=== PATIENT | female | born 1955 | race Hispanic/Latino ===

== ENCOUNTER 2022-02-12 07:01 | Day surgery (SDC) | payer OTHER ==
[2022-02-08 12:46] VITALS: BMI 31.5
[2022-02-12] MEDS ORDERED: EPINEPHrine 0.3 MG in Ophthalmic Irrigation Solution 500 ML IRR SCH (07:15)
[2022-02-12] MEDS ORDERED: Cyclopentolate 1% Opth Drop 2 ML BOT ONE (07:16)
[2022-02-12] MEDS ORDERED: Phenylephrine 2.5% Ophth Soln 5 ML BOT ONE (07:16)
[2022-02-12] MEDS ORDERED: Midazolam HCl 2 mg/2 ml Vial ONE (08:33)
[2022-02-12] MEDS ORDERED: fentaNYL Citrate/PF 100 MCG/2 ML SYRINGE ONE (08:34)
[2022-02-12] MEDS ORDERED: Bupivacaine 0.75% 10 ML VIAL ONE (08:56)
[2022-02-12] MEDS ORDERED: CEFAZOLIN 1 GM VIAL ONE (08:56)
[2022-02-12] MEDS ORDERED: Triamcinolone 40 MG/ML VIAL ONE (08:56)
[2022-02-12] MEDS ORDERED: Lidocaine 4% PF 5 ML AMP ONE (08:56)
[2022-02-12] MEDS ORDERED: Maxitrol 0.1% Opth Oint 3.5 GM TUBE ONE (08:56)
[2022-02-12] MEDS ORDERED: Lidocaine 1% PF 5 ML VIAL ONE (08:56)
== END 2022-02-12 10:11 | disposition home or self-care (01) ==
LOC: SDC 07:01
PROVIDERS: ATTEND Ophthalmology Retina Specialist
PROC: 08B43ZZ Excision of Right Vitreous, Percutaneous Approach (ICD-10-PCS; principal; 2022-02-12)
PROC: 08QE3ZZ Repair Right Retina, Percutaneous Approach (ICD-10-PCS; 2022-02-12)
DX: H43.11 Vitreous hemorrhage, right eye (principal); E11.3591 Type 2 diabetes mellitus with proliferative diabetic retinopathy without macular edema, right eye
CPT/HCPCS: J0171; J0690; J2250; J3301; J3490

== ENCOUNTER 2022-03-03 21:11 | Inpatient (IN) | payer OTHER ==
[2022-03-03 22:08] LABS: #Lymphocytes 0.9 thou/uL (1.20-3.40); #Monocytes 0.7 thou/uL (0.11-0.59); #Neutrophils 9.7 thou/uL (1.40-6.50); %Basophils 0.3 % (0.0-1.0); %Eosinophils 0.4 % (0.0-10.0); %Lymphocytes 7.5 % (21.0-51.0); %Monocytes 6.4 % (0.0-10.0); %Neutrophils 85.4 % (42.0-75.0); Hemoglobin 8.8 g/dL (12.0-16.0); Mean Corpuscular Hemoglobin 27.5 pg (27.0-31.0); Mean Corpuscular Volume 88.7 fl (78.0-98.0); Mean Platelet Volume 9.4 fL (7.4-10.4); Platelet Count 204 thou/uL (130-400); Red Blood Cell (RBC) Count 3.21 mill/uL (4.20-5.40); White Blood Cell (WBC) Count 11.3 thou/uL (4.8-10.8)
[2022-03-03] MEDS ORDERED: cefTRIAXone\\ROCEPHIN 2 GM VIAL ONE (22:43)
[2022-03-03 23:15] LABS: ALT (SGPT) 15 U/L (8-55); AST (SGOT) 13 U/L (5-34); Albumin 3.5 g/dL (3.4-4.8); Alkaline Phosphatase 83 U/L (40-110); Anion Gap 13 mmol/L (10-20); BUN (Urea Nitrogen) 50 mg/dL (9.8-20.1); Bilirubin, Total 0.5 mg/dL (0.2-1.2); Calc. Creatinine Clearance 0 mL/min (70-130); Calcium 8.9 mg/dL (7.8-10.44); Carbon Dioxide 20 mmol/L (23-31); Chloride 105 mmol/L (98-107); Estimated GFR 25; Globulin 3.6 g/dL (2.4-3.5); Glucose 224 mg/dL (80-115); Potassium 4.4 mmol/L (3.5-5.1); Protein, Total 7.1 g/dL (5.8-8.1); Sodium 134 mmol/L (136-145)
[2022-03-04] MEDS ORDERED: Azithromycin 500 MG VIAL ONE (00:03)
[2022-03-04 00:04] LABS: SARS-CoV-2 NAA Rapid Test DETECTED (NotDetected)
[2022-03-04] MEDS ORDERED: Acetaminophen 500 MG TAB ONE (01:13)
[2022-03-04] MEDS ORDERED: Furosemide 40 MG/4 ML VIAL ONE (01:13)
[2022-03-04] MEDS ORDERED: Ondansetron PF 4 MG/2 ML Vial IVP PRN (01:21)
[2022-03-04] MEDS ORDERED: Dextrose 5% in Water 1,000 ML IV PRN (01:23)
[2022-03-04] MEDS ORDERED: Dextrose 50% Abboject 50 ML SYRINGE SLOW IVP PRN (01:23)
[2022-03-04] MEDS ORDERED: Furosemide 20 MG/2 ML VIAL SLOW IVP SCH (01:30)
[2022-03-04 01:54] LABS: Troponin I 0.011 ng/mL (< 0.028)
[2022-03-04] MEDS ORDERED: Albuterol Sulfate 2.5 mg/3 ml Neb NEB PRN (02:34)
[2022-03-04] MEDS ORDERED: Albuterol 200 PUFF (6.7GM INHALER) INH PRN (02:40)
[2022-03-04 03:25] VITALS: BMI 31.0
[2022-03-04] MEDS: Acetaminophen 325 MG TAB PO PRN ×4 (04:24→23:13)
[2022-03-04] MEDS: Dexamethasone 10 MG/ML VIAL SLOW IVP SCH ×2 (04:25→13:39)
[2022-03-04 05:19] LABS: #Lymphocytes 1.7 thou/uL (1.20-3.40); #Monocytes 0.7 thou/uL (0.11-0.59); #Neutrophils 6.9 thou/uL (1.40-6.50); %Basophils 0.3 % (0.0-1.0); %Eosinophils 0.5 % (0.0-10.0); %Lymphocytes 18.2 % (21.0-51.0); %Monocytes 7.4 % (0.0-10.0); %Neutrophils 73.7 % (42.0-75.0); Hemoglobin 8.8 g/dL (12.0-16.0); Mean Corpuscular Hemoglobin 28.9 pg (27.0-31.0); Mean Corpuscular Volume 90.3 fl (78.0-98.0); Mean Platelet Volume 9.3 fL (7.4-10.4); Platelet Count 201 thou/uL (130-400); Red Blood Cell (RBC) Count 3.04 mill/uL (4.20-5.40); White Blood Cell (WBC) Count 9.3 thou/uL (4.8-10.8)
[2022-03-04 05:34] LABS: Anion Gap 14 mmol/L (10-20); BUN (Urea Nitrogen) 47 mg/dL (9.8-20.1); Calc. Creatinine Clearance 32 mL/min (70-130); Calcium 8.6 mg/dL (7.8-10.44); Carbon Dioxide 20 mmol/L (23-31); Chloride 106 mmol/L (98-107); Estimated GFR 27; Glucose 148 mg/dL (80-115); Potassium 4.1 mmol/L (3.5-5.1); Sodium 136 mmol/L (136-145)
[2022-03-04 05:42] LABS: Troponin I Less than 0.010 ng/mL (< 0.028)
[2022-03-04] MEDS: Furosemide 20 MG/2 ML VIAL SLOW IVP SCH ×2 (07:08→13:39)
[2022-03-04] MEDS: Zinc Sulfate 220 MG CAP PO SCH (10:20)
[2022-03-04] MEDS: Ascorbic Acid 500 mg Chewable Tablet PO SCH (10:20)
[2022-03-04] MEDS: Heparin 5,000 UNITS/ML VIAL SC SCH ×2 (10:20→22:20)
[2022-03-04 12:47] LABS: Legionella Urinary Ag Negative (Negative); Strep pneumo Urine Ag NEGATIVE (NEGATIVE)
[2022-03-04] MEDS: HumaLOG 300 UNITS/3 ML VIAL SC PRN ×3 (13:42→22:41)
[2022-03-04] MEDS ORDERED: Morphine 2 MG/ML VIAL SLOW IVP PRN (13:45)
[2022-03-04] MEDS: Morphine 4 MG/ML VIAL SLOW IVP PRN ×2 (14:18→17:55)
[2022-03-04] MEDS ORDERED: Epoetin (ESRD) 20,000 UNITS/ML SC SCH (17:30)
[2022-03-04 17:43] LABS: Iron 10 ug/dL (50-170); Iron Binding Capacity, Total 241 mcg/dL (265-497)
[2022-03-04] MEDS ORDERED: Furosemide 40 MG TAB PO PRN (18:43)
[2022-03-04] MEDS ORDERED: cloNIDine 0.1 MG TAB PO PRN (18:43)
[2022-03-04] MEDS ORDERED: Insulin Glargine 30 UNITS/0.3 ML VIAL SC SCH (21:00)
[2022-03-04] MEDS: Amlodipine 5 MG TAB PO SCH (22:16)
[2022-03-04] MEDS: cefTRIAXone\\ROCEPHIN 1 GM in Sodium Chloride 0.9% 100 ML IVPB SCH (22:21)
[2022-03-05] MEDS: Azithromycin 500 MG in Sodium Chloride 0.9% 250 ML 250 ML IVPB SCH (03:12)
[2022-03-05] MEDS: Dexamethasone 10 MG/ML VIAL SLOW IVP SCH ×2 (03:12→15:33)
[2022-03-05] MEDS: Morphine 4 MG/ML VIAL SLOW IVP PRN ×2 (03:43→09:54)
[2022-03-05 04:25] LABS: #Lymphocytes 0.8 thou/uL (1.20-3.40); #Monocytes 0.2 thou/uL (0.11-0.59); #Neutrophils 4.8 thou/uL (1.40-6.50); %Basophils 0.1 % (0.0-1.0); %Eosinophils 0.1 % (0.0-10.0); %Lymphocytes 13.6 % (21.0-51.0); %Monocytes 2.8 % (0.0-10.0); %Neutrophils 83.5 % (42.0-75.0); Hemoglobin 9.3 g/dL (12.0-16.0); Mean Corpuscular HGB CONC 32.6 g/dL (32.0-36.0); Mean Corpuscular Hemoglobin 28.7 pg (27.0-31.0); Mean Platelet Volume 10.2 fL (7.4-10.4); Platelet Count 217 thou/uL (130-400); RBC Distribution Width 13.7 % (11.5-14.5); Red Blood Cell (RBC) Count 3.24 mill/uL (4.20-5.40); White Blood Cell (WBC) Count 5.8 thou/uL (4.8-10.8)
[2022-03-05 04:38] LABS: Anion Gap 15 mmol/L (10-20); BUN (Urea Nitrogen) 55 mg/dL (9.8-20.1); Calc. Creatinine Clearance 33 mL/min (70-130); Calcium 9.1 mg/dL (7.8-10.44); Carbon Dioxide 21 mmol/L (23-31); Chloride 102 mmol/L (98-107); Estimated GFR 28; Glucose 245 mg/dL (80-115); Potassium 4.1 mmol/L (3.5-5.1); Sodium 134 mmol/L (136-145)
[2022-03-05] MEDS: Furosemide 20 MG/2 ML VIAL SLOW IVP SCH ×2 (06:37→15:32)
[2022-03-05] MEDS ORDERED: Alogliptin 25 MG TAB PO SCH (09:00)
[2022-03-05] MEDS: FLUoxetine HCl 20 MG CAP PO SCH (09:53)
[2022-03-05] MEDS: Amlodipine 5 MG TAB PO SCH ×2 (09:55→21:04)
[2022-03-05] MEDS: Zinc Sulfate 220 MG CAP PO SCH (09:55)
[2022-03-05] MEDS: Ascorbic Acid 500 mg Chewable Tablet PO SCH (09:55)
[2022-03-05] MEDS: Atorvastatin Calcium 40 MG TAB PO SCH (09:55)
[2022-03-05] MEDS: Heparin 5,000 UNITS/ML VIAL SC SCH ×2 (09:56→21:04)
[2022-03-05] MEDS: Pregabalin 75 MG CAP PO SCH (09:56)
[2022-03-05] MEDS: Alogliptin 6.25 MG TAB PO SCH (10:01)
[2022-03-05] MEDS: HumaLOG 300 UNITS/3 ML VIAL SC PRN ×3 (12:50→21:03)
[2022-03-05] MEDS ORDERED: Insulin Glargine 30 UNITS/0.3 ML VIAL SC SCH ×2 (15:15→21:00)
[2022-03-05] MEDS: Acetaminophen/Codeine 30-300mg Tablet PO PRN (17:33)
[2022-03-05 21:36] VITALS: BP 146/95
[2022-03-05] MEDS: cefTRIAXone\\ROCEPHIN 1 GM in Sodium Chloride 0.9% 100 ML IVPB SCH (23:46)
[2022-03-06] MEDS: Acetaminophen/Codeine 30-300mg Tablet PO PRN ×3 (00:04→15:26)
[2022-03-06] MEDS: Azithromycin 500 MG in Sodium Chloride 0.9% 250 ML 250 ML IVPB SCH ×2 (00:50→23:33)
[2022-03-06] MEDS: Dexamethasone 10 MG/ML VIAL SLOW IVP SCH ×2 (02:07→15:25)
[2022-03-06 04:00] LABS: #Lymphocytes 0.8 thou/uL (1.20-3.40); #Monocytes 0.2 thou/uL (0.11-0.59); #Neutrophils 4.9 thou/uL (1.40-6.50); %Eosinophils 0.2 % (0.0-10.0); %Neutrophils 83.9 % (42.0-75.0); Hemoglobin 9.4 g/dL (12.0-16.0); Mean Corpuscular HGB CONC 32.5 g/dL (32.0-36.0); Mean Corpuscular Hemoglobin 28.9 pg (27.0-31.0); Mean Platelet Volume 9.8 fL (7.4-10.4); Platelet Count 248 thou/uL (130-400); RBC Distribution Width 13.7 % (11.5-14.5); Red Blood Cell (RBC) Count 3.26 mill/uL (4.20-5.40); White Blood Cell (WBC) Count 5.8 thou/uL (4.8-10.8)
[2022-03-06 04:21] LABS: Anion Gap 13 mmol/L (10-20); BUN (Urea Nitrogen) 62 mg/dL (9.8-20.1); Calc. Creatinine Clearance 34 mL/min (70-130); Calcium 8.5 mg/dL (7.8-10.44); Carbon Dioxide 24 mmol/L (23-31); Chloride 101 mmol/L (98-107); Estimated GFR 28; Glucose 303 mg/dL (80-115); Potassium 4.2 mmol/L (3.5-5.1); Sodium 134 mmol/L (136-145)
[2022-03-06] MEDS: Furosemide 20 MG/2 ML VIAL SLOW IVP SCH ×2 (05:38→15:18)
[2022-03-06] MEDS: HumaLOG 300 UNITS/3 ML VIAL SC PRN ×4 (05:39→21:17)
[2022-03-06] MEDS: Alogliptin 6.25 MG TAB PO SCH (08:53)
[2022-03-06] MEDS: Atorvastatin Calcium 40 MG TAB PO SCH (08:53)
[2022-03-06] MEDS: Ascorbic Acid 500 mg Chewable Tablet PO SCH (08:53)
[2022-03-06] MEDS: Amlodipine 5 MG TAB PO SCH ×2 (08:54→20:48)
[2022-03-06] MEDS: Heparin 5,000 UNITS/ML VIAL SC SCH ×2 (08:54→20:49)
[2022-03-06] MEDS: Zinc Sulfate 220 MG CAP PO SCH (08:54)
[2022-03-06] MEDS: Calcitriol 0.25 MCG CAP PO SCH (08:54)
[2022-03-06] MEDS: Pregabalin 75 MG CAP PO SCH (08:54)
[2022-03-06] MEDS: FLUoxetine HCl 20 MG CAP PO SCH (08:54)
[2022-03-06 10:19] LABS: Creatinine, Urine 27.09 mg/dL (47-110)
[2022-03-06] MEDS ORDERED: Insulin Glargine 30 UNITS/0.3 ML VIAL SC SCH (14:30)
[2022-03-06] MEDS: Insulin Glargine 30 UNITS/0.3 ML VIAL SC SCH (20:49)
[2022-03-06] MEDS: Morphine 4 MG/ML VIAL SLOW IVP PRN (21:18)
[2022-03-06] MEDS: cefTRIAXone\\ROCEPHIN 1 GM in Sodium Chloride 0.9% 100 ML IVPB SCH (23:04)
[2022-03-07] MEDS: Dexamethasone 10 MG/ML VIAL SLOW IVP SCH ×2 (01:49→15:20)
[2022-03-07] MEDS: HumaLOG 300 UNITS/3 ML VIAL SC PRN ×4 (06:06→21:29)
[2022-03-07] MEDS ORDERED: FLU VACC QS2022-23(65YR UP)/PF 240 MCG/0.7 ML SYRINGE IM ONE (09:00)
[2022-03-07] MEDS: Pregabalin 75 MG CAP PO SCH (09:07)
[2022-03-07] MEDS: FLUoxetine HCl 20 MG CAP PO SCH (09:07)
[2022-03-07] MEDS: Atorvastatin Calcium 40 MG TAB PO SCH (09:07)
[2022-03-07] MEDS: Calcitriol 0.25 MCG CAP PO SCH (09:07)
[2022-03-07] MEDS: Amlodipine 5 MG TAB PO SCH ×2 (09:07→20:48)
[2022-03-07] MEDS: Ascorbic Acid 500 mg Chewable Tablet PO SCH (09:07)
[2022-03-07] MEDS: Zinc Sulfate 220 MG CAP PO SCH (09:07)
[2022-03-07] MEDS: Heparin 5,000 UNITS/ML VIAL SC SCH ×2 (09:08→20:47)
[2022-03-07] MEDS: Alogliptin 6.25 MG TAB PO SCH (09:08)
[2022-03-07] MEDS: Morphine 4 MG/ML VIAL SLOW IVP PRN ×2 (09:08→17:04)
[2022-03-07 10:58] LABS: #Lymphocytes 0.8 thou/uL (1.20-3.40); #Monocytes 0.5 thou/uL (0.11-0.59); #Neutrophils 4.1 thou/uL (1.40-6.50); %Basophils 0.2 % (0.0-1.0); %Eosinophils 0.1 % (0.0-10.0); %Lymphocytes 14.9 % (21.0-51.0); %Monocytes 9.7 % (0.0-10.0); Hemoglobin 10.5 g/dL (12.0-16.0); Mean Corpuscular HGB CONC 31.6 g/dL (32.0-36.0); Mean Corpuscular Hemoglobin 27.8 pg (27.0-31.0); Mean Corpuscular Volume 88.1 fl (78.0-98.0); Mean Platelet Volume 9.3 fL (7.4-10.4); Platelet Count 299 thou/uL (130-400); RBC Distribution Width 13.8 % (11.5-14.5); Red Blood Cell (RBC) Count 3.78 mill/uL (4.20-5.40); White Blood Cell (WBC) Count 5.5 thou/uL (4.8-10.8)
[2022-03-07 11:16] LABS: Anion Gap 14 mmol/L (10-20); BUN (Urea Nitrogen) 56 mg/dL (9.8-20.1); Calc. Creatinine Clearance 0 mL/min (70-130); Carbon Dioxide 25 mmol/L (23-31); Chloride 99 mmol/L (98-107); Estimated GFR 30; Glucose 424 mg/dL (80-115); Potassium 4.2 mmol/L (3.5-5.1); Sodium 134 mmol/L (136-145)
[2022-03-07 15:49] LABS: Bilirubin Negative (Negative); Blood, Urine 1+ (Negative); Clarity Turbid (Clear); Glucose, Urine (Dipstick) >=1000 mg/dL (Negative); Ketone, Urine Negative (Negative); Leukocyte 75 Leu/uL (Negative); Nitrite Negative (Negative); Protein, Urine (Dipstick) 70 mg/dL (Neg-Trace); Specific Gravity, Urine 1.015 (1.002-1.036); Squamous Epithelial 0-3 HPF (0-3); Urobilinogen Normal mg/dL (Less than 2); WBC/HPF 0-3 HPF (0-3); pH, Urine 5.5 (5.0-9.0)
[2022-03-07 16:00] LABS: Bacteria/HPF 1+ HPF (None Seen); RBC/HPF 0-3 HPF (0-3); Yeast-Budding 1+ HPF (None Seen)
[2022-03-07 16:01] LABS: Urine Culture Reflex Yes Yes
[2022-03-07 16:39] LABS: A/G Ratio 0.7 (0.7-1.7); Albumin 2.6 g/dL (2.9-4.4); Alpha 1 0.5 g/dL (0.0-0.4); Alpha 2 1.1 g/dL (0.4-1.0); Beta 1.1 g/dL (0.7-1.3); Gamma 1.1 g/dL (0.4-1.8); Globulin, Total 3.7 g/dL (2.2-3.9); M-Spike Not Observed g/dL (Not Observed); Protein Electrophoresis Intrp Note: (.)
[2022-03-07] MEDS: Insulin Glargine 30 UNITS/0.3 ML VIAL SC SCH (20:48)
[2022-03-08] MEDS: cefTRIAXone\\ROCEPHIN 1 GM in Sodium Chloride 0.9% 100 ML IVPB SCH (00:19)
[2022-03-08] MEDS: Azithromycin 500 MG in Sodium Chloride 0.9% 250 ML 250 ML IVPB SCH (00:53)
[2022-03-08] MEDS: Dexamethasone 10 MG/ML VIAL SLOW IVP SCH ×2 (02:56→14:17)
[2022-03-08 04:15] LABS: #Lymphocytes 1.6 thou/uL (1.20-3.40); #Monocytes 0.5 thou/uL (0.11-0.59); #Neutrophils 4.8 thou/uL (1.40-6.50); %Eosinophils 0.2 % (0.0-10.0); %Lymphocytes 22.7 % (21.0-51.0); %Monocytes 7.8 % (0.0-10.0); %Neutrophils 69.2 % (42.0-75.0); Hemoglobin 9.7 g/dL (12.0-16.0); Mean Corpuscular HGB CONC 32.4 g/dL (32.0-36.0); Mean Corpuscular Hemoglobin 28.2 pg (27.0-31.0); Mean Corpuscular Volume 86.9 fl (78.0-98.0); Mean Platelet Volume 9.6 fL (7.4-10.4); Platelet Count 270 thou/uL (130-400); RBC Distribution Width 13.7 % (11.5-14.5); Red Blood Cell (RBC) Count 3.43 mill/uL (4.20-5.40); White Blood Cell (WBC) Count 6.9 thou/uL (4.8-10.8)
[2022-03-08 04:33] LABS: Anion Gap 15 mmol/L (10-20); BUN (Urea Nitrogen) 56 mg/dL (9.8-20.1); CRP (Inflammatory) 4.24 mg/dL (= or < 0.5); Calc. Creatinine Clearance 0 mL/min (70-130); Calcium 8.9 mg/dL (7.8-10.44); Carbon Dioxide 24 mmol/L (23-31); Chloride 103 mmol/L (98-107); Estimated GFR 34; Glucose 176 mg/dL (80-115); Potassium 4.6 mmol/L (3.5-5.1); Sodium 137 mmol/L (136-145)
[2022-03-08] MEDS: HumaLOG 300 UNITS/3 ML VIAL SC PRN ×3 (07:01→17:21)
[2022-03-08] MEDS: Amlodipine 5 MG TAB PO SCH (09:10)
[2022-03-08] MEDS: Alogliptin 6.25 MG TAB PO SCH (09:10)
[2022-03-08] MEDS: Ascorbic Acid 500 mg Chewable Tablet PO SCH (09:10)
[2022-03-08] MEDS: FLUoxetine HCl 20 MG CAP PO SCH (09:11)
[2022-03-08] MEDS: Pregabalin 75 MG CAP PO SCH (09:11)
[2022-03-08] MEDS: Zinc Sulfate 220 MG CAP PO SCH (09:11)
[2022-03-08] MEDS: Atorvastatin Calcium 40 MG TAB PO SCH (09:11)
[2022-03-08] MEDS: Calcitriol 0.25 MCG CAP PO SCH (09:11)
[2022-03-08] MEDS: Heparin 5,000 UNITS/ML VIAL SC SCH (09:14)
[2022-03-08 16:04] VITALS: TEMP 98
== END 2022-03-08 18:37 | disposition home or self-care (01) | DRG 177 ==
LOC: ERS 21:11 → ERHOLD 03-04 01:04 → IMCU/EMU 03-04 02:16
PROVIDERS: ADMIT Hospitalist; ATTEND Hospitalist
PROC: 8E0ZXY6 Isolation (ICD-10-PCS; principal; 2022-03-04)
PROC: 3E0333Z Introduction of Anti-inflammatory into Peripheral Vein, Percutaneous Approach (ICD-10-PCS; 2022-03-04)
DX: U07.1 COVID-19 (principal); J15.9 Unspecified bacterial pneumonia; J96.01 Acute respiratory failure with hypoxia; N18.4 Chronic kidney disease, stage 4 (severe); I69.954 Hemiplegia and hemiparesis following unspecified cerebrovascular disease affecting left non-dominant side; I13.0 Hypertensive heart and chronic kidney disease with heart failure and stage 1 through stage 4 chronic kidney disease, or unspecified chronic kidney disease; N17.9 Acute kidney failure, unspecified; E87.1 Hypo-osmolality and hyponatremia; I50.32 Chronic diastolic (congestive) heart failure; D63.1 Anemia in chronic kidney disease; E87.5 Hyperkalemia; E11.22 Type 2 diabetes mellitus with diabetic chronic kidney disease; M79.7 Fibromyalgia; Z79.899 Other long term (current) drug therapy; Z90.710 Acquired absence of both cervix and uterus; Z90.49 Acquired absence of other specified parts of digestive tract
CPT/HCPCS: 36415; 36416; 71045; 76770; 80048; 80053; 81001; 82306; 82570; 82728; 83540; 83550; 83605; 83880; 83970; 84100; 84145; 84155; 84156; 84165; 84484; 85025; 85379; 86140; 87040; 87086; 87449; 87899; 93005; 93306; 96365; 96367; 96375; J0456; J0696; J1100; J1644; J1815; J1940; J2270; J3490; J7050; Q4081

== ENCOUNTER 2023-03-10 23:07 | Inpatient (IN) | payer MEDICARE, OTHER ==
[2023-03-10] MEDS ORDERED: Acetaminophen 500 MG TAB ONE (23:32)
[2023-03-10] MEDS ORDERED: Ipratropium/Albuterol 3 ML NEB ONE (23:32)
[2023-03-10 23:48] LABS: Actual Bicarbonate (HCO3v) 21.4 mEq/L (22-28); Base Excess -3.5 mEq/L (-2.0 to +3.0); Calcium, Ionized (venous) 1.09 mmol/L (1.16-1.32); Chloride (VBG) 107 mmol/L (98-106); Hematocrit-VBG 34 % (36.0-47.0); Hemoglobin (Hb) 11.7 g/dL (11.7-16.1); Potassium (VBG) 5.18 mmol/L (3.70-5.30); Sodium 137 mmol/L (133-146); pH (venous) 7.366 (7.32-7.43)
[2023-03-11 00:07] LABS: #Basophils 0.1 thou/uL (0.0-0.2); #Eosinphils 0.1 thou/uL (0.0-0.7); #Monocytes 0.8 thou/uL (0.11-0.59); #Neutrophils 8.5 thou/uL (1.40-6.50); %Basophils 0.5 % (0.0-1.0); %Eosinophils 0.5 % (0.0-10.0); %Lymphocytes 12.7 % (21.0-51.0); %Monocytes 7.3 % (0.0-10.0); %Neutrophils 78.4 % (42.0-75.0); Hematocrit 33.6 % (36.0-47.0); Hemoglobin 10.6 g/dL (12.0-16.0); Mean Corpuscular HGB CONC 31.5 g/dL (32.0-36.0); Mean Corpuscular Hemoglobin 27.7 pg (27.0-31.0); Mean Platelet Volume 11.8 fL (7.4-10.4); Platelet Count 220 10x3/uL (130-400); RBC Distribution Width 13.4 % (11.5-14.5); Red Blood Cell (RBC) Count 3.82 mill/uL (4.20-5.40); White Blood Cell (WBC) Count 10.8 10x3/uL (4.8-10.8)
[2023-03-11 00:18] LABS: PTT 30.3 sec (22.9-36.1); Prothrombin Time 13.6 sec (12.0-14.7)
[2023-03-11 00:40] LABS: Troponin I Less than 0.010 ng/mL (< 0.028)
[2023-03-11 00:42] LABS: ALT (SGPT) 10 U/L (8-55); AST (SGOT) 14 U/L (5-34); Alkaline Phosphatase 73 U/L (40-110); BUN (Urea Nitrogen) 48 mg/dL (9.8-20.1); Bilirubin, Total 0.5 mg/dL (0.2-1.2); Calc. Creatinine Clearance 0 mL/min (70-130); Calcium 8.8 mg/dL (7.8-10.44); Carbon Dioxide 20 mmol/L (23-31); Estimated GFR 20; Globulin 2.6 g/dL (2.4-3.5); Glucose 141 mg/dL (80-115); Lipase 13 U/L (8-78); Magnesium 2.1 mg/dL (1.6-2.6); Protein, Total 6.6 g/dL (5.8-8.1)
[2023-03-11 00:50] LABS: Anion Gap 16 mmol/L (10-20); Chloride 108 mmol/L (98-107); Potassium 5.2 mmol/L (3.5-5.1); Sodium 138 mmol/L (136-145)
[2023-03-11] MEDS ORDERED: Furosemide 40 MG/4 ML VIAL ONE (02:15)
[2023-03-11] MEDS ORDERED: traMADol HCl 50 MG TAB ONE (02:16)
[2023-03-11 02:23] LABS: SARS-CoV-2 NAA Rapid Test Not Detected (NotDetected)
[2023-03-11] MEDS ORDERED: Dextrose 50% Abboject 50 ML SYRINGE SLOW IVP PRN (02:26)
[2023-03-11] MEDS ORDERED: Dextrose 5% in Water 1,000 ML IV PRN (02:26)
[2023-03-11] MEDS ORDERED: Glucagon 1 MG/ML KIT IM PRN (02:26)
[2023-03-11 03:23] LABS: Bilirubin Negative (Negative); Blood, Urine Small (Negative); Glucose, Urine (Dipstick) Negative (Negative); Ketone, Urine Trace mg/dL (Negative); Leukocyte Small (Negative); Nitrite Negative (Negative); Protein, Urine (Dipstick) 30 mg/dL (Neg-Trace); Specific Gravity, Urine 1.015 (1.005-1.030); Urobilinogen 0.2 mg/dL (Less than 2); pH, Urine 5.5 (5.0-9.0)
[2023-03-11 03:26] LABS: Clarity Hazy (Clear)
[2023-03-11 03:37] LABS: Bacteria/HPF 2+ HPF (None Seen); CAUTI Indications for Culture Alt mental st,lethar; RBC/HPF 0-3 HPF (0-3); WBC/HPF 21-50 HPF (0-3)
[2023-03-11 03:38] LABS: Urine Culture Reflex Yes Yes
[2023-03-11] MEDS ORDERED: Morphine 4 MG/ML VIAL SLOW IVP SCH (03:45)
[2023-03-11] MEDS ORDERED: Morphine 2 MG/ML VIAL ONE (03:58)
[2023-03-11 04:09] LABS: Troponin I 0.025 ng/mL (< 0.028)
[2023-03-11 05:40] LABS: #Monocytes 0.6 thou/uL (0.11-0.59); #Neutrophils 6.3 thou/uL (1.40-6.50); %Basophils 0.5 % (0.0-1.0); %Eosinophils 0.1 % (0.0-10.0); %Lymphocytes 18.6 % (21.0-51.0); %Monocytes 7.2 % (0.0-10.0); %Neutrophils 73.1 % (42.0-75.0); Hemoglobin 9.9 g/dL (12.0-16.0); Mean Corpuscular HGB CONC 30.9 g/dL (32.0-36.0); Mean Corpuscular Hemoglobin 27.6 pg (27.0-31.0); Mean Corpuscular Volume 89.1 fl (78.0-98.0); Mean Platelet Volume 11.4 fL (7.4-10.4); Platelet Count 193 10x3/uL (130-400); RBC Distribution Width 13.2 % (11.5-14.5); Red Blood Cell (RBC) Count 3.59 mill/uL (4.20-5.40); White Blood Cell (WBC) Count 8.6 10x3/uL (4.8-10.8)
[2023-03-11 06:13] LABS: Troponin I 0.016 ng/mL (< 0.028)
[2023-03-11 06:14] LABS: Anion Gap 15 mmol/L (10-20); BUN (Urea Nitrogen) 49 mg/dL (9.8-20.1); Calc. Creatinine Clearance 28 mL/min (70-130); Calcium 8.4 mg/dL (7.8-10.44); Carbon Dioxide 19 mmol/L (23-31); Chloride 109 mmol/L (98-107); Estimated GFR 21; Glucose 147 mg/dL (80-115); Sodium 138 mmol/L (136-145)
[2023-03-11] MEDS: Heparin 5,000 UNITS/ML VIAL SC SCH ×2 (09:28→21:32)
[2023-03-11] MEDS ORDERED: cefTRIAXone\\ROCEPHIN 2 GM in Sodium Chloride 0.9% 100 ML IVPB SCH (14:00)
[2023-03-11] MEDS: Furosemide 40 MG/4 ML VIAL SLOW IVP SCH (14:55)
[2023-03-11] MEDS: Acetaminophen 325 MG TAB PO PRN (16:01)
[2023-03-11] MEDS: HumaLOG 300 UNITS/3 ML VIAL SC PRN (17:38)
[2023-03-12] MEDS: Acetaminophen 325 MG TAB PO PRN ×3 (00:58→20:21)
[2023-03-12 04:23] LABS: #Eosinphils 0.1 thou/uL (0.0-0.7); #Monocytes 0.7 thou/uL (0.11-0.59); %Basophils 0.3 % (0.0-1.0); %Eosinophils 0.8 % (0.0-10.0); %Lymphocytes 20.9 % (21.0-51.0); %Monocytes 7.7 % (0.0-10.0); %Neutrophils 69.8 % (42.0-75.0); Hematocrit 28.7 % (36.0-47.0); Hemoglobin 9.3 g/dL (12.0-16.0); Mean Corpuscular HGB CONC 32.4 g/dL (32.0-36.0); Mean Corpuscular Hemoglobin 27.9 pg (27.0-31.0); Mean Platelet Volume 12.1 fL (7.4-10.4); Platelet Count 192 10x3/uL (130-400); RBC Distribution Width 13.2 % (11.5-14.5); Red Blood Cell (RBC) Count 3.33 mill/uL (4.20-5.40); White Blood Cell (WBC) Count 8.6 10x3/uL (4.8-10.8)
[2023-03-12 05:22] LABS: Mean Corpuscular Volume 86.2 fl (78.0-98.0)
[2023-03-12] MEDS: HumaLOG 300 UNITS/3 ML VIAL SC PRN ×3 (05:24→17:44)
[2023-03-12] MEDS: Furosemide 40 MG/4 ML VIAL SLOW IVP SCH ×2 (05:24→14:49)
[2023-03-12 08:55] LABS: Anion Gap 13 mmol/L (10-20); BUN (Urea Nitrogen) 52 mg/dL (9.8-20.1); Calc. Creatinine Clearance 28 mL/min (70-130); Calcium 8.2 mg/dL (7.8-10.44); Carbon Dioxide 22 mmol/L (23-31); Chloride 102 mmol/L (98-107); Estimated GFR 20; Glucose 184 mg/dL (80-115); Potassium 4.3 mmol/L (3.5-5.1); Sodium 133 mmol/L (136-145)
[2023-03-12] MEDS ORDERED: cefTRIAXone\\ROCEPHIN 1 GM in Sodium Chloride 0.9% 100 ML IVPB SCH (09:00)
[2023-03-12] MEDS ORDERED: Insulin Glargine 30 UNITS/0.3 ML VIAL SC SCH (09:15)
[2023-03-12] MEDS: Heparin 5,000 UNITS/ML VIAL SC SCH ×2 (09:34→20:22)
[2023-03-12] MEDS ORDERED: Alogliptin 6.25 MG TAB PO SCH (09:45)
[2023-03-12] MEDS ORDERED: Atorvastatin Calcium 40 MG TAB PO SCH (09:45)
[2023-03-12] MEDS ORDERED: Carvedilol 25 MG TAB PO SCH (09:45)
[2023-03-12] MEDS ORDERED: FLUoxetine HCl 20 MG CAP PO SCH (09:45)
[2023-03-12] MEDS: cefTRIAXone\\ROCEPHIN 1 GM in Sodium Chloride 0.9% 100 ML IVPB SCH (14:49)
[2023-03-12] MEDS: Pregabalin 75 MG CAP PO SCH (20:21)
[2023-03-12] MEDS: Carvedilol 25 MG TAB PO SCH (20:22)
[2023-03-13 04:32] LABS: #Eosinphils 0.3 thou/uL (0.0-0.7); #Monocytes 0.7 thou/uL (0.11-0.59); #Neutrophils 4.3 thou/uL (1.40-6.50); %Basophils 0.4 % (0.0-1.0); %Eosinophils 3.4 % (0.0-10.0); %Lymphocytes 30.5 % (21.0-51.0); %Monocytes 9.3 % (0.0-10.0); Hematocrit 29.7 % (36.0-47.0); Hemoglobin 9.4 g/dL (12.0-16.0); Mean Corpuscular HGB CONC 31.6 g/dL (32.0-36.0); Mean Corpuscular Hemoglobin 27.1 pg (27.0-31.0); Mean Corpuscular Volume 85.6 fl (78.0-98.0); Mean Platelet Volume 12.6 fL (7.4-10.4); Platelet Count 200 10x3/uL (130-400); RBC Distribution Width 13.2 % (11.5-14.5); Red Blood Cell (RBC) Count 3.47 mill/uL (4.20-5.40); White Blood Cell (WBC) Count 7.7 10x3/uL (4.8-10.8)
[2023-03-13 04:49] LABS: Anion Gap 14 mmol/L (10-20); BUN (Urea Nitrogen) 52 mg/dL (9.8-20.1); Calc. Creatinine Clearance 28 mL/min (70-130); Calcium 8.4 mg/dL (7.8-10.44); Carbon Dioxide 28 mmol/L (23-31); Chloride 101 mmol/L (98-107); Estimated GFR 20; Glucose 148 mg/dL (80-115); Magnesium 2.1 mg/dL (1.6-2.6); Potassium 3.7 mmol/L (3.5-5.1); Sodium 139 mmol/L (136-145)
[2023-03-13] MEDS: Furosemide 40 MG/4 ML VIAL SLOW IVP SCH ×2 (06:04→15:14)
[2023-03-13] MEDS: Heparin 5,000 UNITS/ML VIAL SC SCH ×2 (08:26→21:06)
[2023-03-13] MEDS: Alogliptin 6.25 MG TAB PO SCH (08:26)
[2023-03-13] MEDS: Atorvastatin Calcium 40 MG TAB PO SCH (08:27)
[2023-03-13] MEDS: Carvedilol 25 MG TAB PO SCH ×2 (08:27→21:05)
[2023-03-13] MEDS: FLUoxetine HCl 20 MG CAP PO SCH (08:27)
[2023-03-13] MEDS: Insulin Glargine 30 UNITS/0.3 ML VIAL SC SCH (08:27)
[2023-03-13] MEDS: Acetaminophen 325 MG TAB PO PRN ×2 (10:21→17:52)
[2023-03-13] MEDS ORDERED: Morphine 4 MG/ML VIAL SLOW IVP SCH (11:00)
[2023-03-13] MEDS: cefTRIAXone\\ROCEPHIN 1 GM in Sodium Chloride 0.9% 100 ML IVPB SCH (15:14)
[2023-03-13] MEDS: Pregabalin 75 MG CAP PO SCH (21:05)
[2023-03-13] MEDS: HumaLOG 300 UNITS/3 ML VIAL SC PRN (21:06)
[2023-03-13] MEDS: Morphine 2 MG/ML VIAL SLOW IVP PRN (21:06)
[2023-03-14] MEDS: Morphine 2 MG/ML VIAL SLOW IVP PRN ×2 (04:18→08:13)
[2023-03-14] MEDS: Furosemide 40 MG/4 ML VIAL SLOW IVP SCH (04:18)
[2023-03-14 05:05] LABS: #Eosinphils 0.3 thou/uL (0.0-0.7); #Monocytes 0.5 thou/uL (0.11-0.59); #Neutrophils 2.6 thou/uL (1.40-6.50); %Basophils 0.5 % (0.0-1.0); %Eosinophils 6.1 % (0.0-10.0); %Lymphocytes 35.9 % (21.0-51.0); %Monocytes 9.6 % (0.0-10.0); %Neutrophils 47.5 % (42.0-75.0); Hemoglobin 9.9 g/dL (12.0-16.0); Mean Corpuscular HGB CONC 31.9 g/dL (32.0-36.0); Mean Corpuscular Hemoglobin 27.8 pg (27.0-31.0); Mean Corpuscular Volume 87.1 fl (78.0-98.0); Platelet Count 216 10x3/uL (130-400); RBC Distribution Width 13.3 % (11.5-14.5); Red Blood Cell (RBC) Count 3.56 mill/uL (4.20-5.40); White Blood Cell (WBC) Count 5.5 10x3/uL (4.8-10.8)
[2023-03-14 05:24] LABS: Anion Gap 14 mmol/L (10-20); BUN (Urea Nitrogen) 56 mg/dL (9.8-20.1); Calc. Creatinine Clearance 26 mL/min (70-130); Calcium 8.4 mg/dL (7.8-10.44); Carbon Dioxide 30 mmol/L (23-31); Chloride 100 mmol/L (98-107); Estimated GFR 19; Glucose 118 mg/dL (80-115); Magnesium 2.2 mg/dL (1.6-2.6); Potassium 4.1 mmol/L (3.5-5.1); Sodium 140 mmol/L (136-145)
[2023-03-14] MEDS: Acetaminophen 325 MG TAB PO PRN ×2 (06:16→20:01)
[2023-03-14] MEDS: Alogliptin 6.25 MG TAB PO SCH (08:07)
[2023-03-14] MEDS: FLUoxetine HCl 20 MG CAP PO SCH (08:07)
[2023-03-14] MEDS: Atorvastatin Calcium 40 MG TAB PO SCH (08:08)
[2023-03-14] MEDS: Insulin Glargine 30 UNITS/0.3 ML VIAL SC SCH (08:08)
[2023-03-14] MEDS: Heparin 5,000 UNITS/ML VIAL SC SCH ×2 (08:08→20:01)
[2023-03-14] MEDS: Carvedilol 25 MG TAB PO SCH ×2 (08:08→20:00)
[2023-03-14] MEDS: Albumin 25% 25 GM/100 ML BOT IVPB SCH ×2 (11:19→17:53)
[2023-03-14] MEDS: cefTRIAXone\\ROCEPHIN 1 GM in Sodium Chloride 0.9% 100 ML IVPB SCH (13:49)
[2023-03-14] MEDS ORDERED: Cyclobenzaprine 10 MG TAB PO PRN (13:59)
[2023-03-14] MEDS: Pregabalin 75 MG CAP PO SCH (20:00)
[2023-03-15] MEDS: Albumin 25% 25 GM/100 ML BOT IVPB SCH ×2 (00:02→05:47)
[2023-03-15 04:54] LABS: #Eosinphils 0.4 thou/uL (0.0-0.7); #Monocytes 0.6 thou/uL (0.11-0.59); #Neutrophils 2.9 thou/uL (1.40-6.50); %Basophils 0.3 % (0.0-1.0); %Eosinophils 7.4 % (0.0-10.0); %Lymphocytes 33.8 % (21.0-51.0); %Monocytes 9.9 % (0.0-10.0); %Neutrophils 48.4 % (42.0-75.0); Hematocrit 27.9 % (36.0-47.0); Hemoglobin 8.8 g/dL (12.0-16.0); Mean Corpuscular HGB CONC 31.5 g/dL (32.0-36.0); Mean Corpuscular Hemoglobin 27.7 pg (27.0-31.0); Mean Corpuscular Volume 87.7 fl (78.0-98.0); Mean Platelet Volume 11.7 fL (7.4-10.4); Platelet Count 201 10x3/uL (130-400); Red Blood Cell (RBC) Count 3.18 mill/uL (4.20-5.40)
[2023-03-15 05:38] LABS: Anion Gap 16 mmol/L (10-20); BUN (Urea Nitrogen) 56 mg/dL (9.8-20.1); Calc. Creatinine Clearance 24 mL/min (70-130); Calcium 8.2 mg/dL (7.8-10.44); Carbon Dioxide 29 mmol/L (23-31); Chloride 99 mmol/L (98-107); Estimated GFR 18; Glucose 157 mg/dL (80-115); Magnesium 2.1 mg/dL (1.6-2.6); Potassium 4.1 mmol/L (3.5-5.1); Sodium 140 mmol/L (136-145)
[2023-03-15] MEDS: Carvedilol 25 MG TAB PO SCH ×2 (10:02→21:27)
[2023-03-15] MEDS: Heparin 5,000 UNITS/ML VIAL SC SCH ×2 (10:02→21:26)
[2023-03-15] MEDS: Atorvastatin Calcium 40 MG TAB PO SCH (10:02)
[2023-03-15] MEDS: Insulin Glargine 30 UNITS/0.3 ML VIAL SC SCH (10:02)
[2023-03-15] MEDS: Alogliptin 6.25 MG TAB PO SCH (10:02)
[2023-03-15] MEDS: FLUoxetine HCl 20 MG CAP PO SCH (10:02)
[2023-03-15] MEDS ORDERED: Morphine 2 MG/ML VIAL SLOW IVP PRN (11:20)
[2023-03-15] MEDS ORDERED: Epoetin (ESRD) 10,000 UNITS/ML VIAL SC SCH (12:00)
[2023-03-15] MEDS: cefTRIAXone\\ROCEPHIN 1 GM in Sodium Chloride 0.9% 100 ML IVPB SCH (18:12)
[2023-03-15] MEDS: Pregabalin 75 MG CAP PO SCH (21:27)
[2023-03-16 04:58] LABS: #Eosinphils 0.4 thou/uL (0.0-0.7); #Monocytes 0.6 thou/uL (0.11-0.59); #Neutrophils 2.9 thou/uL (1.40-6.50); %Basophils 0.3 % (0.0-1.0); %Eosinophils 7.3 % (0.0-10.0); %Lymphocytes 33.8 % (21.0-51.0); %Monocytes 9.6 % (0.0-10.0); %Neutrophils 48.8 % (42.0-75.0); Hematocrit 28.7 % (36.0-47.0); Hemoglobin 9.1 g/dL (12.0-16.0); Mean Corpuscular HGB CONC 31.7 g/dL (32.0-36.0); Mean Corpuscular Hemoglobin 27.4 pg (27.0-31.0); Mean Corpuscular Volume 86.4 fl (78.0-98.0); Platelet Count 209 10x3/uL (130-400); RBC Distribution Width 12.9 % (11.5-14.5); Red Blood Cell (RBC) Count 3.32 mill/uL (4.20-5.40); White Blood Cell (WBC) Count 5.9 10x3/uL (4.8-10.8)
[2023-03-16 05:29] LABS: Anion Gap 12 mmol/L (10-20); BUN (Urea Nitrogen) 54 mg/dL (9.8-20.1); Calc. Creatinine Clearance 33 mL/min (70-130); Carbon Dioxide 31 mmol/L (23-31); Chloride 100 mmol/L (98-107); Estimated GFR 26; Glucose 149 mg/dL (80-115); Magnesium 2.4 mg/dL (1.6-2.6); Potassium 4.4 mmol/L (3.5-5.1); Sodium 139 mmol/L (136-145)
[2023-03-16] MEDS: Heparin 5,000 UNITS/ML VIAL SC SCH ×2 (08:32→21:16)
[2023-03-16] MEDS: Atorvastatin Calcium 40 MG TAB PO SCH (08:32)
[2023-03-16] MEDS: FLUoxetine HCl 20 MG CAP PO SCH (08:32)
[2023-03-16] MEDS: Insulin Glargine 30 UNITS/0.3 ML VIAL SC SCH (08:32)
[2023-03-16] MEDS: Alogliptin 6.25 MG TAB PO SCH (08:32)
[2023-03-16] MEDS: Carvedilol 25 MG TAB PO SCH ×2 (08:32→21:17)
[2023-03-16] MEDS ORDERED: Aspirin 81 mg Enteric Coated Tablet PO SCH (09:00)
[2023-03-16] MEDS: Lidocaine 4% Patch TD SCH (14:46)
[2023-03-16] MEDS: cefTRIAXone\\ROCEPHIN 1 GM in Sodium Chloride 0.9% 100 ML IVPB SCH (14:59)
[2023-03-16] MEDS: Pregabalin 75 MG CAP PO SCH (21:17)
[2023-03-16] MEDS: Ciprofloxacin 500 MG TAB PO SCH (21:17)
[2023-03-16] MEDS: Transdermal Patch Removal TOP SCH (22:50)
[2023-03-17 06:33] LABS: #Eosinphils 0.3 thou/uL (0.0-0.7); #Monocytes 0.3 thou/uL (0.11-0.59); #Neutrophils 5.1 thou/uL (1.40-6.50); %Lymphocytes 13.8 % (21.0-51.0); %Monocytes 4.7 % (0.0-10.0); %Neutrophils 76.3 % (42.0-75.0); Hematocrit 33.2 % (36.0-47.0); Hemoglobin 10.3 g/dL (12.0-16.0); Mean Corpuscular Hemoglobin 27.4 pg (27.0-31.0); Mean Corpuscular Volume 88.3 fl (78.0-98.0); Mean Platelet Volume 12.6 fL (7.4-10.4); Platelet Count 256 10x3/uL (130-400); Red Blood Cell (RBC) Count 3.76 mill/uL (4.20-5.40); White Blood Cell (WBC) Count 6.6 10x3/uL (4.8-10.8)
[2023-03-17 07:43] LABS: Anion Gap 12 mmol/L (10-20); BUN (Urea Nitrogen) 47 mg/dL (9.8-20.1); Calc. Creatinine Clearance 38 mL/min (70-130); Carbon Dioxide 31 mmol/L (23-31); Chloride 101 mmol/L (98-107); Estimated GFR 30; Glucose 183 mg/dL (80-115); Magnesium 2.5 mg/dL (1.6-2.6); Potassium 4.5 mmol/L (3.5-5.1); Sodium 139 mmol/L (136-145)
[2023-03-17] MEDS: FLUoxetine HCl 20 MG CAP PO SCH (09:14)
[2023-03-17] MEDS: Carvedilol 25 MG TAB PO SCH ×2 (09:14→22:22)
[2023-03-17] MEDS: Atorvastatin Calcium 40 MG TAB PO SCH (09:14)
[2023-03-17] MEDS: Alogliptin 6.25 MG TAB PO SCH (09:15)
[2023-03-17] MEDS: Lidocaine 4% Patch TD SCH (09:16)
[2023-03-17] MEDS: Heparin 5,000 UNITS/ML VIAL SC SCH ×2 (09:19→22:21)
[2023-03-17] MEDS: HumaLOG 300 UNITS/3 ML VIAL SC PRN (18:14)
[2023-03-17] MEDS: Ondansetron PF 4 MG/2 ML Vial IVP PRN (22:16)
[2023-03-17] MEDS: Pregabalin 75 MG CAP PO SCH (22:21)
[2023-03-17] MEDS: Acetaminophen 325 MG TAB PO PRN (22:22)
[2023-03-17] MEDS: Nystatin Cream 15 GM TUBE TOP SCH (22:23)
[2023-03-17] MEDS: Ciprofloxacin 500 MG TAB PO SCH (22:52)
[2023-03-18] MEDS: Transdermal Patch Removal TOP SCH ×2 (01:49→23:58)
[2023-03-18 06:20] LABS: #Eosinphils 0.6 thou/uL (0.0-0.7); #Monocytes 0.7 thou/uL (0.11-0.59); #Neutrophils 15.2 thou/uL (1.40-6.50); %Basophils 0.1 % (0.0-1.0); %Eosinophils 3.4 % (0.0-10.0); %Lymphocytes 6.6 % (21.0-51.0); %Monocytes 3.7 % (0.0-10.0); %Neutrophils 85.4 % (42.0-75.0); Hematocrit 33.5 % (36.0-47.0); Hemoglobin 10.5 g/dL (12.0-16.0); Mean Corpuscular HGB CONC 31.3 g/dL (32.0-36.0); Mean Corpuscular Hemoglobin 27.4 pg (27.0-31.0); Mean Corpuscular Volume 87.5 fl (78.0-98.0); Mean Platelet Volume 11.9 fL (7.4-10.4); Platelet Count 269 10x3/uL (130-400); RBC Distribution Width 13.5 % (11.5-14.5); Red Blood Cell (RBC) Count 3.83 mill/uL (4.20-5.40); White Blood Cell (WBC) Count 17.8 10x3/uL (4.8-10.8)
[2023-03-18 06:56] LABS: Anion Gap 12 mmol/L (10-20); BUN (Urea Nitrogen) 52 mg/dL (9.8-20.1); Calc. Creatinine Clearance 27 mL/min (70-130); Calcium 8.7 mg/dL (7.8-10.44); Carbon Dioxide 30 mmol/L (23-31); Chloride 98 mmol/L (98-107); Estimated GFR 20; Glucose 201 mg/dL (80-115); Magnesium 2.3 mg/dL (1.6-2.6); Potassium 5.4 mmol/L (3.5-5.1); Sodium 135 mmol/L (136-145)
[2023-03-18] MEDS ORDERED: hydrOXYzine 10 MG TAB PO PRN (08:32)
[2023-03-18] MEDS: Alogliptin 6.25 MG TAB PO SCH (08:45)
[2023-03-18] MEDS: Atorvastatin Calcium 40 MG TAB PO SCH (08:45)
[2023-03-18] MEDS: Carvedilol 25 MG TAB PO SCH ×2 (08:45→21:10)
[2023-03-18] MEDS: FLUoxetine HCl 20 MG CAP PO SCH (08:45)
[2023-03-18] MEDS: Aquaphor 3.5 oz 99 GM JAR TOP SCH ×2 (08:49→21:13)
[2023-03-18] MEDS: Nystatin Cream 15 GM TUBE TOP SCH ×2 (08:50→21:13)
[2023-03-18] MEDS: Heparin 5,000 UNITS/ML VIAL SC SCH ×2 (08:51→21:12)
[2023-03-18] MEDS: Polyethylene Glycol 3350 17 GM Packet PO SCH (09:05)
[2023-03-18 09:16] LABS: ALT (SGPT) 74 U/L (8-55); AST (SGOT) 39 U/L (5-34); Alkaline Phosphatase 129 U/L (40-110); Bilirubin, Direct 0.2 mg/dL (0.1-0.3); Bilirubin, Total 0.5 mg/dL (0.2-1.2); Protein, Total 5.8 g/dL (5.8-8.1)
[2023-03-18] MEDS: Sodium Chloride 0.9% 1,000 ML IV SCH (10:51)
[2023-03-18] MEDS: Acetaminophen 325 MG TAB PO PRN ×2 (10:51→21:36)
[2023-03-18] MEDS: HumaLOG 300 UNITS/3 ML VIAL SC PRN ×2 (12:45→17:30)
[2023-03-18 13:46] LABS: Anion Gap 13 mmol/L (10-20); BUN (Urea Nitrogen) 55 mg/dL (9.8-20.1); Calc. Creatinine Clearance 25 mL/min (70-130); Calcium 8.4 mg/dL (7.8-10.44); Carbon Dioxide 26 mmol/L (23-31); Chloride 95 mmol/L (98-107); Estimated GFR 18; Glucose 303 mg/dL (80-115); Potassium 5.3 mmol/L (3.5-5.1); Sodium 129 mmol/L (136-145)
[2023-03-18] MEDS ORDERED: LOKELMA 10 GM PACKET PO SCH (14:00)
[2023-03-18 14:06] LABS: SARS-CoV-2 NAA Rapid Test Not Detected (NotDetected)
[2023-03-18] MEDS ORDERED: Insulin Glargine 30 UNITS/0.3 ML VIAL SC SCH (14:15)
[2023-03-18 15:23] LABS: HBCM Index 0.05 S/CO (0-0.79); HBSAg Index 0.53 S/CO (0-0.99); Hep A IgM AB Non-Reactive S/CO (NonReactive); Hep A IgM S/CO 0.14 S/CO (0-0.79); Hep B Surf Ag Non-Reactive S/CO (NonReactive); Hep C IgG Ab Non-Reactive S/CO (NonReactive); Hep C Index 0.06 S/CO (0-0.79); Hepatitis B Core IgM Abs Non-Reactive S/CO (NonReactive)
[2023-03-18 18:43] LABS: BUN (Urea Nitrogen) 55 mg/dL (9.8-20.1); Calc. Creatinine Clearance 24 mL/min (70-130); Calcium 8.3 mg/dL (7.8-10.44); Carbon Dioxide 23 mmol/L (23-31); Estimated GFR 17; Glucose 249 mg/dL (80-115)
[2023-03-18 18:47] LABS: Chloride 94 mmol/L (98-107); Potassium 5.2 mmol/L (3.5-5.1); Sodium 127 mmol/L (136-145)
[2023-03-18 19:28] LABS: Anion Gap 18 mmol/L (10-20)
[2023-03-18] MEDS: Pregabalin 75 MG CAP PO SCH (21:10)
[2023-03-18] MEDS: Ondansetron PF 4 MG/2 ML Vial IVP PRN (21:12)
[2023-03-19] MEDS ORDERED: methylPREDNISolone Sod Succ 40 MG VIAL IVP SCH ×4 (00:07→18:30)
[2023-03-19] MEDS ORDERED: diphenhydrAMINE 50 MG/ML VIAL IVP SCH (00:15)
[2023-03-19 04:41] LABS: Hematocrit 29.8 % (36.0-47.0); Hemoglobin 9.5 g/dL (12.0-16.0); Mean Corpuscular HGB CONC 31.9 g/dL (32.0-36.0); Mean Corpuscular Hemoglobin 27.7 pg (27.0-31.0); Mean Corpuscular Volume 86.9 fl (78.0-98.0); Mean Platelet Volume 12.2 fL (7.4-10.4); Platelet Count 258 10x3/uL (130-400); RBC Distribution Width 13.6 % (11.5-14.5); Red Blood Cell (RBC) Count 3.43 mill/uL (4.20-5.40); White Blood Cell (WBC) Count 20.4 10x3/uL (4.8-10.8)
[2023-03-19 04:58] LABS: Delete Auto Diff?? YES; Manual Diff?? YES
[2023-03-19 05:03] LABS: ALT (SGPT) 57 U/L (8-55); AST (SGOT) 17 U/L (5-34); Albumin 3.8 g/dL (3.4-4.8); Alkaline Phosphatase 105 U/L (40-110); Bilirubin, Direct 0.3 mg/dL (0.1-0.3); Bilirubin, Total 0.6 mg/dL (0.2-1.2); Protein, Total 5.7 g/dL (5.8-8.1)
[2023-03-19 05:19] LABS: Anion Gap 17 mmol/L (10-20); BUN (Urea Nitrogen) 58 mg/dL (9.8-20.1); Calc. Creatinine Clearance 23 mL/min (70-130); Calcium 7.9 mg/dL (7.8-10.44); Carbon Dioxide 23 mmol/L (23-31); Chloride 94 mmol/L (98-107); Estimated GFR 16; Glucose 269 mg/dL (80-115); Magnesium 1.9 mg/dL (1.6-2.6); Potassium 5.3 mmol/L (3.5-5.1); Sodium 129 mmol/L (136-145)
[2023-03-19 05:41] LABS: Band 16 % (5-11); CellaVision Operator ID lab.sh2; Dohle Bodies SLIGHT; Eosinophils 1 % (0-10); Lymphocytes 1 % (21-51); Monocytes 3 % (0-10); Neutrophil 79 % (42-75); Ovalocytes SLIGHT = 2-5 cells HPF (0-1); Platelet Adequacy Comment Platelets Normal; Polychromasia SLIGHT = 2-3 cells HPF (0-2); Total Cell Count 100; Vacuoles SLIGHT
[2023-03-19] MEDS: HumaLOG 300 UNITS/3 ML VIAL SC PRN ×4 (08:07→21:13)
[2023-03-19] MEDS ORDERED: Piperacillin/Tazobactam 3.375 GM in Sodium Chloride 0.9% 100 ML IVPB SCH ×2 (08:30→09:15)
[2023-03-19] MEDS ORDERED: Insulin Glargine 30 UNITS/0.3 ML VIAL SC SCH ×2 (09:00→21:00)
[2023-03-19] MEDS: FLUoxetine HCl 20 MG CAP PO SCH (10:04)
[2023-03-19] MEDS: Heparin 5,000 UNITS/ML VIAL SC SCH ×2 (10:05→21:15)
[2023-03-19] MEDS: Carvedilol 25 MG TAB PO SCH ×2 (10:05→21:16)
[2023-03-19] MEDS: Atorvastatin Calcium 40 MG TAB PO SCH (10:05)
[2023-03-19] MEDS: Polyethylene Glycol 3350 17 GM Packet PO SCH (10:06)
[2023-03-19] MEDS: Nystatin Cream 15 GM TUBE TOP SCH ×2 (10:11→21:21)
[2023-03-19] MEDS ORDERED: LOKELMA 10 GM PACKET PO SCH (10:15)
[2023-03-19] MEDS: Ondansetron PF 4 MG/2 ML Vial IVP PRN (10:59)
[2023-03-19] MEDS: Piperacillin/Tazobactam 3.375 GM in Sodium Chloride 0.9% 100 ML IVPB SCH (14:14)
[2023-03-19] MEDS: Acetaminophen 325 MG TAB PO PRN (14:15)
[2023-03-19] MEDS: hydrOXYzine 10 MG TAB PO SCH ×2 (15:59→21:18)
[2023-03-19 19:54] LABS: Anion Gap 18 mmol/L (10-20); BUN (Urea Nitrogen) 68 mg/dL (9.8-20.1); Calc. Creatinine Clearance 22 mL/min (70-130); Calcium 8.2 mg/dL (7.8-10.44); Carbon Dioxide 22 mmol/L (23-31); Chloride 94 mmol/L (98-107); Estimated GFR 16; Glucose 350 mg/dL (80-115); Potassium 4.3 mmol/L (3.5-5.1); Sodium 130 mmol/L (136-145)
[2023-03-19] MEDS: Pregabalin 75 MG CAP PO SCH (21:16)
[2023-03-19] MEDS: Nystatin 500,000 UNITS/5 ML UDCUP SSW SCH (21:18)
[2023-03-19] MEDS: Transdermal Patch Removal TOP SCH (21:27)
[2023-03-20] MEDS: Piperacillin/Tazobactam 3.375 GM in Sodium Chloride 0.9% 100 ML IVPB SCH ×2 (01:27→13:43)
[2023-03-20] MEDS: methylPREDNISolone Sod Succ 40 MG VIAL IVP SCH ×4 (01:28→23:23)
[2023-03-20] MEDS: hydrOXYzine 10 MG TAB PO SCH ×4 (03:29→21:36)
[2023-03-20] MEDS: Acetaminophen 325 MG TAB PO PRN ×2 (03:39→23:29)
[2023-03-20 04:24] LABS: Hematocrit 28.3 % (36.0-47.0); Hemoglobin 9.1 g/dL (12.0-16.0); Mean Corpuscular HGB CONC 32.2 g/dL (32.0-36.0); Mean Corpuscular Hemoglobin 27.2 pg (27.0-31.0); Mean Corpuscular Volume 84.7 fl (78.0-98.0); Mean Platelet Volume 12.5 fL (7.4-10.4); Platelet Count 267 10x3/uL (130-400); RBC Distribution Width 13.3 % (11.5-14.5); Red Blood Cell (RBC) Count 3.34 mill/uL (4.20-5.40); White Blood Cell (WBC) Count 25.1 10x3/uL (4.8-10.8)
[2023-03-20 04:32] LABS: Delete Auto Diff?? YES; Manual Diff?? YES
[2023-03-20 04:49] LABS: ALT (SGPT) 57 U/L (8-55); AST (SGOT) 36 U/L (5-34); Albumin 3.7 g/dL (3.4-4.8); Alkaline Phosphatase 128 U/L (40-110); Bilirubin, Direct 0.2 mg/dL (0.1-0.3); Bilirubin, Total 0.4 mg/dL (0.2-1.2)
[2023-03-20 04:50] LABS: Anion Gap 16 mmol/L (10-20); BUN (Urea Nitrogen) 76 mg/dL (9.8-20.1); Calc. Creatinine Clearance 24 mL/min (70-130); Calcium 8.4 mg/dL (7.8-10.44); Carbon Dioxide 25 mmol/L (23-31); Chloride 96 mmol/L (98-107); Estimated GFR 17; Glucose 344 mg/dL (80-115); Magnesium 2.3 mg/dL (1.6-2.6); Sodium 133 mmol/L (136-145)
[2023-03-20 05:19] LABS: Band 38 % (5-11); CellaVision Operator ID LAB.CLH1; Hypochromia SLIGHT = 6-15 cells HPF (0-5); Lymphocytes 2 % (21-51); Monocytes 1 % (0-10); Neutrophil 58 % (42-75); Platelet Adequacy Comment Platelets Normal; Polychromasia SLIGHT = 2-3 cells HPF (0-2); Promyelocytes 1 % (0-0); Total Cell Count 100
[2023-03-20] MEDS: HumaLOG 300 UNITS/3 ML VIAL SC PRN ×3 (05:42→21:38)
[2023-03-20 09:14] LABS: EBV VCA IgM <36.0 U/mL (0.0-35.9)
[2023-03-20] MEDS: Carvedilol 25 MG TAB PO SCH ×2 (09:36→21:37)
[2023-03-20] MEDS: FLUoxetine HCl 20 MG CAP PO SCH (09:36)
[2023-03-20] MEDS: Insulin Glargine 30 UNITS/0.3 ML VIAL SC SCH ×2 (09:37→21:35)
[2023-03-20] MEDS: Atorvastatin Calcium 40 MG TAB PO SCH (09:37)
[2023-03-20] MEDS: Nystatin 500,000 UNITS/5 ML UDCUP SSW SCH ×4 (09:37→21:36)
[2023-03-20] MEDS: Heparin 5,000 UNITS/ML VIAL SC SCH ×2 (09:40→21:37)
[2023-03-20] MEDS: Aquaphor 3.5 oz 99 GM JAR TOP SCH (09:50)
[2023-03-20] MEDS: Polyethylene Glycol 3350 17 GM Packet PO SCH (09:50)
[2023-03-20] MEDS: Nystatin Cream 15 GM TUBE TOP SCH ×2 (09:50→21:38)
[2023-03-20 12:04] VITALS: BMI 33.7
[2023-03-20] MEDS: Sodium Chloride 0.9% 1,000 ML IV SCH (17:54)
[2023-03-20] MEDS: Pregabalin 75 MG CAP PO SCH (21:36)
[2023-03-20] MEDS: Transdermal Patch Removal TOP SCH (22:03)
[2023-03-20 22:12] LABS: HIV-1 Quantitative, RNA PCR <20 copies/mL (.)
[2023-03-21] MEDS: hydrOXYzine 10 MG TAB PO SCH ×4 (04:31→22:17)
[2023-03-21 04:43] LABS: Hematocrit 26.7 % (36.0-47.0); Hemoglobin 8.7 g/dL (12.0-16.0); Mean Corpuscular HGB CONC 32.6 g/dL (32.0-36.0); Mean Corpuscular Volume 85.9 fl (78.0-98.0); Mean Platelet Volume 12.4 fL (7.4-10.4); Platelet Count 271 10x3/uL (130-400); RBC Distribution Width 13.3 % (11.5-14.5); Red Blood Cell (RBC) Count 3.11 mill/uL (4.20-5.40); White Blood Cell (WBC) Count 26.5 10x3/uL (4.8-10.8)
[2023-03-21 05:14] LABS: ALT (SGPT) 67 U/L (8-55); AST (SGOT) 37 U/L (5-34); Albumin 3.5 g/dL (3.4-4.8); Alkaline Phosphatase 145 U/L (40-110); Bilirubin, Direct 0.1 mg/dL (0.1-0.3); Bilirubin, Total 0.3 mg/dL (0.2-1.2); Delete Auto Diff?? YES; Manual Diff?? YES; Protein, Total 5.7 g/dL (5.8-8.1)
[2023-03-21 05:17] LABS: Anion Gap 15 mmol/L (10-20); BUN (Urea Nitrogen) 76 mg/dL (9.8-20.1); Calc. Creatinine Clearance 25 mL/min (70-130); Calcium 8.5 mg/dL (7.8-10.44); Carbon Dioxide 24 mmol/L (23-31); Chloride 99 mmol/L (98-107); Estimated GFR 18; Glucose 364 mg/dL (80-115); Magnesium 2.4 mg/dL (1.6-2.6); Sodium 134 mmol/L (136-145)
[2023-03-21] MEDS: HumaLOG 300 UNITS/3 ML VIAL SC PRN ×3 (06:19→18:42)
[2023-03-21 06:32] LABS: Band 13 % (5-11); CellaVision Operator ID LAB.GE; Eosinophils 1 % (0-10); Lymphocytes 3 % (21-51); Monocytes 3 % (0-10); Neutrophil 80 % (42-75); Platelet Adequacy Comment Platelets Normal; Polychromasia SLIGHT = 2-3 cells HPF (0-2); Total Cell Count 101
[2023-03-21] MEDS: FLUoxetine HCl 20 MG CAP PO SCH (09:27)
[2023-03-21] MEDS: Insulin Glargine 30 UNITS/0.3 ML VIAL SC SCH ×2 (09:27→22:09)
[2023-03-21] MEDS: Polyethylene Glycol 3350 17 GM Packet PO SCH (09:27)
[2023-03-21] MEDS: Atorvastatin Calcium 40 MG TAB PO SCH (09:27)
[2023-03-21] MEDS: Carvedilol 25 MG TAB PO SCH ×2 (09:27→22:15)
[2023-03-21] MEDS: Nystatin 500,000 UNITS/5 ML UDCUP SSW SCH ×4 (09:28→22:09)
[2023-03-21] MEDS: Nystatin Cream 15 GM TUBE TOP SCH ×2 (09:28→22:15)
[2023-03-21] MEDS: Heparin 5,000 UNITS/ML VIAL SC SCH ×2 (09:28→22:08)
[2023-03-21] MEDS: methylPREDNISolone Sod Succ 40 MG VIAL IVP SCH ×2 (09:28→16:16)
[2023-03-21] MEDS: Aquaphor 3.5 oz 99 GM JAR TOP SCH (09:29)
[2023-03-21] MEDS: Sodium Chloride 0.9% 1,000 ML IV SCH (16:17)
[2023-03-21] MEDS: Nystatin Powder 15 GM BOT TOP PRN (18:45)
[2023-03-21] MEDS: Pregabalin 75 MG CAP PO SCH (22:09)
[2023-03-21] MEDS: cloNIDine 0.1 MG TAB PO SCH (22:12)
[2023-03-21] MEDS: Transdermal Patch Removal TOP SCH (22:16)
[2023-03-22] MEDS: methylPREDNISolone Sod Succ 40 MG VIAL IVP SCH ×3 (00:15→15:33)
[2023-03-22] MEDS: hydrOXYzine 10 MG TAB PO SCH ×4 (04:45→22:09)
[2023-03-22 04:55] LABS: Hematocrit 27.6 % (36.0-47.0); Hemoglobin 8.8 g/dL (12.0-16.0); Mean Corpuscular HGB CONC 31.9 g/dL (32.0-36.0); Mean Corpuscular Hemoglobin 27.2 pg (27.0-31.0); Mean Corpuscular Volume 85.4 fl (78.0-98.0); Mean Platelet Volume 12.4 fL (7.4-10.4); Platelet Count 287 10x3/uL (130-400); RBC Distribution Width 13.6 % (11.5-14.5); Red Blood Cell (RBC) Count 3.23 mill/uL (4.20-5.40); White Blood Cell (WBC) Count 20.6 10x3/uL (4.8-10.8)
[2023-03-22 05:04] LABS: Delete Auto Diff?? YES; Manual Diff?? YES
[2023-03-22 05:15] LABS: ALT (SGPT) 61 U/L (8-55); AST (SGOT) 30 U/L (5-34); Albumin 3.6 g/dL (3.4-4.8); Alkaline Phosphatase 204 U/L (40-110); Bilirubin, Direct 0.2 mg/dL (0.1-0.3); Bilirubin, Total 0.4 mg/dL (0.2-1.2); Protein, Total 6.1 g/dL (5.8-8.1)
[2023-03-22 05:28] LABS: Anion Gap 15 mmol/L (10-20); BUN (Urea Nitrogen) 68 mg/dL (9.8-20.1); Calc. Creatinine Clearance 25 mL/min (70-130); Calcium 8.4 mg/dL (7.8-10.44); Carbon Dioxide 25 mmol/L (23-31); Chloride 103 mmol/L (98-107); Estimated GFR 18; Glucose 360 mg/dL (80-115); Magnesium 2.2 mg/dL (1.6-2.6); Potassium 4.1 mmol/L (3.5-5.1); Sodium 139 mmol/L (136-145)
[2023-03-22 05:38] LABS: Band 2 % (5-11); CellaVision Operator ID lab.abc; Hypochromia SLIGHT = 6-15 cells HPF (0-5); Large Platelets 2.9 % (0-5); Lymphocytes 12 % (21-51); Metamyelocyte 2 % (0-0); Monocytes 3 % (0-10); Myelocyte 2 % (0-0); Neutrophil 80 % (42-75); Platelet Adequacy Comment Platelets Normal; Smudge Cells 4.9 %; Total Cell Count 103
[2023-03-22] MEDS ORDERED: Isosorbide Mononitrate 60 MG ER.TAB PO SCH (09:00)
[2023-03-22] MEDS: Nystatin 500,000 UNITS/5 ML UDCUP SSW SCH ×4 (09:55→20:15)
[2023-03-22] MEDS: Insulin Glargine 30 UNITS/0.3 ML VIAL SC SCH ×2 (09:55→22:00)
[2023-03-22] MEDS: Carvedilol 25 MG TAB PO SCH ×2 (09:56→20:17)
[2023-03-22] MEDS: Aquaphor 3.5 oz 99 GM JAR TOP SCH (09:56)
[2023-03-22] MEDS: Heparin 5,000 UNITS/ML VIAL SC SCH ×2 (09:56→22:00)
[2023-03-22] MEDS: FLUoxetine HCl 20 MG CAP PO SCH (09:56)
[2023-03-22] MEDS: Atorvastatin Calcium 40 MG TAB PO SCH (09:56)
[2023-03-22] MEDS: cloNIDine 0.1 MG TAB PO SCH ×2 (09:56→20:17)
[2023-03-22] MEDS: Nystatin Cream 15 GM TUBE TOP SCH ×2 (09:57→20:16)
[2023-03-22] MEDS: Polyethylene Glycol 3350 17 GM Packet PO SCH (10:04)
[2023-03-22] MEDS: Sodium Chloride 0.9% 1,000 ML IV SCH (11:51)
[2023-03-22] MEDS ORDERED: EPOETIN ALFA-EPBX (ESRD) 10,000 UNITS/ML VIAL SC SCH (12:00)
[2023-03-22] MEDS: HumaLOG 300 UNITS/3 ML VIAL SC PRN ×2 (13:08→18:01)
[2023-03-22 15:37] LABS: CMV DNA-PCR Test Negative (Negative)
[2023-03-22] MEDS: Lidocaine 1% w/Epinephrine 1:100K 20 ML VIAL IJ SCH ×2 (16:57→18:06)
[2023-03-22] MEDS: Pregabalin 75 MG CAP PO SCH (20:17)
[2023-03-22] MEDS: Transdermal Patch Removal TOP SCH (20:18)
[2023-03-23] MEDS: methylPREDNISolone Sod Succ 40 MG VIAL IVP SCH ×2 (00:25→08:10)
[2023-03-23] MEDS ORDERED: hydrALAZINE 20 MG/ML VIAL SLOW IVP SCH ×2 (02:00→05:00)
[2023-03-23] MEDS: hydrOXYzine 10 MG TAB PO SCH ×4 (04:42→22:55)
[2023-03-23 05:05] LABS: ALT (SGPT) 44 U/L (8-55); AST (SGOT) 13 U/L (5-34); Albumin 3.3 g/dL (3.4-4.8); Alkaline Phosphatase 137 U/L (40-110); Bilirubin, Direct 0.2 mg/dL (0.1-0.3); Bilirubin, Total 0.3 mg/dL (0.2-1.2); Protein, Total 5.9 g/dL (5.8-8.1)
[2023-03-23] MEDS: HumaLOG 300 UNITS/3 ML VIAL SC PRN ×2 (06:13→16:57)
[2023-03-23 07:14] LABS: Anion Gap 13 mmol/L (10-20); BUN (Urea Nitrogen) 58 mg/dL (9.8-20.1); Calc. Creatinine Clearance 35 mL/min (70-130); Calcium 8.5 mg/dL (7.8-10.44); Carbon Dioxide 25 mmol/L (23-31); Chloride 102 mmol/L (98-107); Estimated GFR 26; Glucose 303 mg/dL (80-115); Potassium 4.3 mmol/L (3.5-5.1); Sodium 136 mmol/L (136-145)
[2023-03-23] MEDS: FLUoxetine HCl 20 MG CAP PO SCH (08:08)
[2023-03-23] MEDS: Nystatin 500,000 UNITS/5 ML UDCUP SSW SCH ×4 (08:08→21:24)
[2023-03-23] MEDS: Atorvastatin Calcium 40 MG TAB PO SCH (08:08)
[2023-03-23] MEDS: cloNIDine 0.1 MG TAB PO SCH (08:09)
[2023-03-23] MEDS: Carvedilol 25 MG TAB PO SCH ×2 (08:10→21:24)
[2023-03-23] MEDS: Insulin Glargine 30 UNITS/0.3 ML VIAL SC SCH ×2 (08:10→21:24)
[2023-03-23] MEDS: Polyethylene Glycol 3350 17 GM Packet PO SCH (08:11)
[2023-03-23] MEDS: Aquaphor 3.5 oz 99 GM JAR TOP SCH (08:11)
[2023-03-23] MEDS: Nystatin Cream 15 GM TUBE TOP SCH ×2 (08:11→21:25)
[2023-03-23] MEDS: Heparin 5,000 UNITS/ML VIAL SC SCH ×2 (08:11→21:25)
[2023-03-23 08:33] LABS: Hematocrit 31.3 % (36.0-47.0); Hemoglobin 9.9 g/dL (12.0-16.0); Mean Corpuscular HGB CONC 31.6 g/dL (32.0-36.0); Mean Corpuscular Hemoglobin 27.1 pg (27.0-31.0); Mean Corpuscular Volume 85.8 fl (78.0-98.0); Mean Platelet Volume 12.9 fL (7.4-10.4); Platelet Count 314 10x3/uL (130-400); RBC Distribution Width 13.7 % (11.5-14.5); Red Blood Cell (RBC) Count 3.65 mill/uL (4.20-5.40); White Blood Cell (WBC) Count 16.4 10x3/uL (4.8-10.8)
[2023-03-23 08:41] LABS: Delete Auto Diff?? YES; Manual Diff?? YES
[2023-03-23] MEDS: Sodium Chloride 0.9% 1,000 ML IV SCH (09:34)
[2023-03-23 10:07] LABS: Band 5 % (5-11); Lymphocytes 14 % (21-51); Metamyelocyte 3 % (0-0); Monocytes 9 % (0-10); Neutrophil 69 % (42-75)
[2023-03-23 10:08] LABS: Platelet Adequacy Comment Appears Adequate; RBC Morph Comment Within Normal Limits
[2023-03-23] MEDS ORDERED: hydrALAZINE 20 MG/ML VIAL SLOW IVP PRN (10:26)
[2023-03-23] MEDS: Acetaminophen 325 MG TAB PO PRN ×2 (10:36→14:37)
[2023-03-23] MEDS ORDERED: Amlodipine 5 MG TAB PO SCH (10:45)
[2023-03-23] MEDS ORDERED: Silver Nitrate Application 1 EACH TOP SCH (14:15)
[2023-03-23] MEDS ORDERED: Triple Antibiotic Oint 1 GM Packet TOP SCH (14:15)
[2023-03-23] MEDS: Amlodipine 5 MG TAB PO SCH (21:23)
[2023-03-23] MEDS: Pregabalin 75 MG CAP PO SCH (21:24)
[2023-03-23] MEDS: Transdermal Patch Removal TOP SCH (21:38)
[2023-03-24] MEDS: hydrOXYzine 10 MG TAB PO SCH ×4 (04:46→20:49)
[2023-03-24] MEDS: Sodium Chloride 0.9% 1,000 ML IV SCH (06:26)
[2023-03-24 07:55] LABS: Hematocrit 28.3 % (36.0-47.0); Hemoglobin 9.1 g/dL (12.0-16.0); Mean Corpuscular HGB CONC 32.2 g/dL (32.0-36.0); Mean Corpuscular Hemoglobin 27.2 pg (27.0-31.0); Mean Corpuscular Volume 84.7 fl (78.0-98.0); Mean Platelet Volume 11.8 fL (7.4-10.4); Platelet Count 312 10x3/uL (130-400); RBC Distribution Width 13.7 % (11.5-14.5); Red Blood Cell (RBC) Count 3.34 mill/uL (4.20-5.40); White Blood Cell (WBC) Count 16.7 10x3/uL (4.8-10.8)
[2023-03-24 08:21] LABS: Anion Gap 12 mmol/L (10-20); BUN (Urea Nitrogen) 50 mg/dL (9.8-20.1); Calc. Creatinine Clearance 40 mL/min (70-130); Carbon Dioxide 25 mmol/L (23-31); Chloride 105 mmol/L (98-107); Estimated GFR 30; Glucose 205 mg/dL (80-115); Potassium 3.9 mmol/L (3.5-5.1); Sodium 138 mmol/L (136-145)
[2023-03-24] MEDS ORDERED: HumaLOG 300 UNITS/3 ML VIAL SC PRN (08:22)
[2023-03-24 08:40] LABS: Delete Auto Diff?? YES; Manual Diff?? YES
[2023-03-24] MEDS ORDERED: methylPREDNISolone Sod Succ 40 MG VIAL IVP SCH (09:00)
[2023-03-24 09:16] LABS: Band 3 % (5-11); CellaVision Operator ID LAB.GE; Large Platelets 3.8 % (0-5); Lymphocytes 23 % (21-51); Metamyelocyte 3 % (0-0); Monocytes 10 % (0-10); Myelocyte 1 % (0-0); Neutrophil 54 % (42-75); Nucleated RBC (Manual Ct) 2 % (0); Other Cell Types 6.7; Platelet Adequacy Comment Platelets Normal; Polychromasia SLIGHT = 2-3 cells HPF (0-2); Total Cell Count 105
[2023-03-24] MEDS: Nystatin 500,000 UNITS/5 ML UDCUP SSW SCH ×4 (09:47→20:50)
[2023-03-24] MEDS: Heparin 5,000 UNITS/ML VIAL SC SCH ×2 (09:48→20:49)
[2023-03-24] MEDS: Insulin Glargine 30 UNITS/0.3 ML VIAL SC SCH ×2 (09:49→20:49)
[2023-03-24] MEDS: Amlodipine 5 MG TAB PO SCH ×2 (09:50→20:49)
[2023-03-24] MEDS: Atorvastatin Calcium 40 MG TAB PO SCH (09:50)
[2023-03-24] MEDS: FLUoxetine HCl 20 MG CAP PO SCH (09:50)
[2023-03-24] MEDS: Aquaphor 3.5 oz 99 GM JAR TOP SCH (09:50)
[2023-03-24] MEDS: Carvedilol 25 MG TAB PO SCH ×2 (09:50→20:49)
[2023-03-24] MEDS: Nystatin Powder 15 GM BOT TOP PRN (09:51)
[2023-03-24] MEDS: Nystatin Cream 15 GM TUBE TOP SCH ×2 (09:52→20:56)
[2023-03-24] MEDS: Polyethylene Glycol 3350 17 GM Packet PO SCH (09:52)
[2023-03-24] MEDS: Pregabalin 75 MG CAP PO SCH (20:49)
[2023-03-24] MEDS: HumaLOG 300 UNITS/3 ML VIAL SC PRN (20:50)
[2023-03-25] MEDS: hydrOXYzine 10 MG TAB PO SCH ×3 (04:22→15:56)
[2023-03-25 04:42] LABS: Hematocrit 28.6 % (36.0-47.0); Hemoglobin 9.3 g/dL (12.0-16.0); Mean Corpuscular HGB CONC 32.5 g/dL (32.0-36.0); Mean Corpuscular Hemoglobin 27.4 pg (27.0-31.0); Mean Corpuscular Volume 84.1 fl (78.0-98.0); Mean Platelet Volume 11.7 fL (7.4-10.4); Platelet Count 306 10x3/uL (130-400); RBC Distribution Width 13.8 % (11.5-14.5); White Blood Cell (WBC) Count 17.4 10x3/uL (4.8-10.8)
[2023-03-25 04:57] LABS: Anion Gap 11 mmol/L (10-20); BUN (Urea Nitrogen) 50 mg/dL (9.8-20.1); Calc. Creatinine Clearance 36 mL/min (70-130); Carbon Dioxide 25 mmol/L (23-31); Chloride 107 mmol/L (98-107); Estimated GFR 26; Glucose 185 mg/dL (80-115); Potassium 4.3 mmol/L (3.5-5.1); Sodium 139 mmol/L (136-145)
[2023-03-25 05:30] LABS: Delete Auto Diff?? YES; Manual Diff?? YES
[2023-03-25 06:45] LABS: Band 6 % (5-11); CellaVision Operator ID LAB.JMM; Lymphocytes 12 % (21-51); Macrocytosis SLIGHT = 6-15 cells HPF (0-5); Metamyelocyte 4 % (0-0); Monocytes 5 % (0-10); Myelocyte 4 % (0-0); Neutrophil 65 % (42-75); Nucleated RBC (Manual Ct) 1 % (0); Ovalocytes SLIGHT = 2-5 cells HPF (0-1); Platelet Adequacy Comment Platelets Normal; Reactive Lymphocytes 4 % (0-10); Total Cell Count 100
[2023-03-25] MEDS ORDERED: predniSONE 20 MG TAB PO SCH (08:00)
[2023-03-25] MEDS ORDERED: Famotidine 20 MG TAB PO SCH (09:00)
[2023-03-25] MEDS: FLUoxetine HCl 20 MG CAP PO SCH (10:18)
[2023-03-25] MEDS: Carvedilol 25 MG TAB PO SCH (10:19)
[2023-03-25] MEDS: Amlodipine 5 MG TAB PO SCH (10:19)
[2023-03-25] MEDS: Atorvastatin Calcium 40 MG TAB PO SCH (10:19)
[2023-03-25] MEDS: Heparin 5,000 UNITS/ML VIAL SC SCH (10:20)
[2023-03-25] MEDS: Nystatin 500,000 UNITS/5 ML UDCUP SSW SCH ×3 (10:20→17:53)
[2023-03-25] MEDS: Insulin Glargine 30 UNITS/0.3 ML VIAL SC SCH (10:20)
[2023-03-25] MEDS: Nystatin Cream 15 GM TUBE TOP SCH (10:21)
[2023-03-25] MEDS: Aquaphor 3.5 oz 99 GM JAR TOP SCH (10:21)
[2023-03-25] MEDS: Polyethylene Glycol 3350 17 GM Packet PO SCH (10:22)
[2023-03-25 15:48] VITALS: BP 134/65; TEMP 98.7
[2023-03-25] MEDS: HumaLOG 300 UNITS/3 ML VIAL SC PRN (18:18)
[2023-03-26] MEDS ORDERED: Furosemide 20 MG/2 ML VIAL SLOW IVP SCH (09:00)
== END 2023-03-25 19:45 | DRG 291 ==
LOC: ERS 23:07 → ERHOLD 03-11 02:09 → 2NO 03-11 02:18
PROVIDERS: ADMIT Internal Medicine; ATTEND Family Medicine
PROC: 30233J1 Transfusion of Nonautologous Serum Albumin into Peripheral Vein, Percutaneous Approach (ICD-10-PCS; 2023-03-14)
PROC: 0HBJXZX Excision of Left Upper Leg Skin, External Approach, Diagnostic (ICD-10-PCS; principal; 2023-03-23)
PROC: 0HBJXZX Excision of Left Upper Leg Skin, External Approach, Diagnostic (ICD-10-PCS; 2023-03-23)
DX: I13.0 Hypertensive heart and chronic kidney disease with heart failure and stage 1 through stage 4 chronic kidney disease, or unspecified chronic kidney disease (principal); G93.41 Metabolic encephalopathy; I50.33 Acute on chronic diastolic (congestive) heart failure; J18.9 Pneumonia, unspecified organism; J96.21 Acute and chronic respiratory failure with hypoxia; N18.4 Chronic kidney disease, stage 4 (severe); E87.20 Acidosis, unspecified; N39.0 Urinary tract infection, site not specified; I69.354 Hemiplegia and hemiparesis following cerebral infarction affecting left non-dominant side; N17.9 Acute kidney failure, unspecified; M19.90 Unspecified osteoarthritis, unspecified site; M06.9 Rheumatoid arthritis, unspecified; E11.22 Type 2 diabetes mellitus with diabetic chronic kidney disease; G89.29 Other chronic pain; F32.A Depression, unspecified; E87.5 Hyperkalemia; E11.649 Type 2 diabetes mellitus with hypoglycemia without coma; G47.33 Obstructive sleep apnea (adult) (pediatric); N28.9 Disorder of kidney and ureter, unspecified; L23.9 Allergic contact dermatitis, unspecified cause; D63.1 Anemia in chronic kidney disease; E66.9 Obesity, unspecified; Z68.35 Body mass index [BMI] 35.0-35.9, adult; Z98.890 Other specified postprocedural states; Z90.710 Acquired absence of both cervix and uterus; Z90.49 Acquired absence of other specified parts of digestive tract; Z88.8 Allergy status to other drugs, medicaments and biological substances; Z79.4 Long term (current) use of insulin; Z79.899 Other long term (current) drug therapy; Z11.52 Encounter for screening for COVID-19
CPT/HCPCS: 36415; 36416; 51701; 70450; 70551; 71045; 71046; 72131; 72148; 74176; 80048; 80053; 80074; 80076; 81001; 82306; 82728; 82805; 83605; 83690; 83735; 83880; 83970; 84145; 84443; 84484; 85025; 85610; 85730; 86140; 86644; 86664; 86665; 87040; 87077; 87086; 87186; 87497; 87536; 88305; 88312; 93005; 93010; 93306; 96374; 97139; J0360; J0696; J1200; J1644; J1815; J1940; J2270; J2272; J2405; J2543; J2920; J3490; J7050; J7512; J7620; P9047; Q5105

== ENCOUNTER 2023-04-18 17:00 | Outpatient (CLI) | payer OTHER | END 2023-04-18 17:01 | disposition home or self-care (01) | LOC: SLEEPLAB 17:00 | PROVIDERS: ATTEND Family Medicine | DX: G47.33 Obstructive sleep apnea (adult) (pediatric) (principal); E11.9 Type 2 diabetes mellitus without complications; I10 Essential (primary) hypertension; G45.9 Transient cerebral ischemic attack, unspecified; I63.9 Cerebral infarction, unspecified; R53.83 Other fatigue; R51.9 Headache, unspecified; R09.89 Other specified symptoms and signs involving the circulatory and respiratory systems; R06.83 Snoring; R35.1 Nocturia; E66.9 Obesity, unspecified; Z68.32 Body mass index [BMI] 32.0-32.9, adult | CPT/HCPCS: 95811 ==